=== PATIENT | female | born 1945 | race Caucasian/White ===

== ENCOUNTER 2016-05-22 06:02 | Emergency (ER) | payer MEDICARE, MEDICAID ==
[~2016-05-22 06:02] MED LIST: ARNUITY ELLIP100 MCG INH; DESMOPRESS10 MCG/0.2 NASBOTH; ELIQUIS5 MG PO; FLOVENT HFA 11012 GM INH; LIPITOR20 MG PO; LOPRESSOR25 MG PO; MELATONIN PO; NITROSTAT0.4 MG SL; PAXIL20 MG PO; PREDNISONE5 MG PO; PRILOSEC20 MG PO; SYNTHROID125 MCG PO; TRICOR145 MG PO; XANAX0.5 MG PO
== END 2016-05-22 08:51 | disposition short-term general hospital (02) ==
LOC: ER 06:02
DX: E87.1 Hypo-osmolality and hyponatremia (principal); R41.0 Disorientation, unspecified; I48.91 Unspecified atrial fibrillation; E27.40 Unspecified adrenocortical insufficiency; Z79.899 Other long term (current) drug therapy; E78.5 Hyperlipidemia, unspecified; E03.9 Hypothyroidism, unspecified; E66.9 Obesity, unspecified; F32.9 Major depressive disorder, single episode, unspecified; E55.9 Vitamin D deficiency, unspecified; K21.9 Gastro-esophageal reflux disease without esophagitis
CPT/HCPCS: J1720

== ENCOUNTER 2016-06-11 20:39 | Emergency (ER) | payer MEDICARE, MEDICAID ==
[~2016-06-11] VITALS: Ht 172.7 cm; Wt 95.2 kg
[2016-06-11] MEDS ORDERED: PREDNISONE10 MG PO (22:43)
[2016-06-11] MEDS ORDERED: ADVIL PM CAPLE1 EACH PO (22:44)
[2016-06-11] MEDS ORDERED: VITAMIN D1000 UNIT PO (22:47)
== END 2016-06-11 21:40 | disposition short-term general hospital (02) ==
LOC: ER 20:39
DX: R19.7 Diarrhea, unspecified (principal); E27.40 Unspecified adrenocortical insufficiency; Z79.899 Other long term (current) drug therapy

== ENCOUNTER → 2016-08-03 | Outpatient (CLI) | payer MEDICARE, MEDICAID ==
[~2016-08-03] MED LIST changes: +ADVIL PM CAPLE1 EACH PO; +PREDNISONE10 MG PO; +VITAMIN D1000 UNIT PO
== END | disposition short-term general hospital (02) ==
LOC: CLPHYS 03:12
DX: G56.12 Other lesions of median nerve, left upper limb (principal); G56.22 Lesion of ulnar nerve, left upper limb